=== PATIENT | male | born 1940 | race Caucasian/White ===

== ENCOUNTER 2016-05-05 05:15 | Inpatient (IN) | payer OTHER ==
[2016-04-07 10:26] VITALS: BMI 35.0
--- NOTE | 2016-04-07 10:49 | PAT Medication Instructions ---
Service Date Apr 07, 2016. Current Home Medication List Aspirin (Aspirin Ec), 81 MG PO QAM Meloxicam (Mobic), 15 MG PO PRN Multivitamin (Multivitamin), 1 TAB PO QAM Medication Instructions For Your Scheduled Surgery Meloxicam (Mobic), 15 MG PO PRN (currently on hold) - Hold the following medications the morning of surgery: Multivitamin (Multivitamin), 1 TAB PO QAM - Take the following medications the morning of surgery with a sip of water: Aspirin (Aspirin Ec), 81 MG PO QAM (okay to continue per surgeon) If you have any questions please call us at [phone] (Erica Lambert PA-C) or [phone] or [phone]
[2016-04-07 11:38] LABS: BASO % 0.5 %; BASO ABS # 0.03 K/uL (0-0.2); COMPLETE YES; HEMATOCRIT 46.5 % (42-52); IG% 0.5 %; LYMPH % 33.7 %; LYMPH ABS # 2.12 K/uL (1.2-3.4); MEAN CELL VOLUME 86.9 fL (80-100); MEAN CORPUSCULAR HEMOGLOBIN 29.9 pg (25-34); MEAN CORPUSCULAR HGB CONC 34.4 g/dl (32-36); MEAN PLATELET VOLUME 9.5 fL (7.4-10.4); MONO % 6.8 %; NEUT % 52.5 %; PLATELET COUNT 181 K/uL (130-400); RED BLOOD COUNT 5.35 M/uL (4.7-6.1); WHITE BLOOD COUNT 6.29 K/uL (4.8-10.8)
[2016-04-07 11:47] LABS: PARTIAL THROMBOPLASTIN RATIO 1.1; PROTHROMBIN TIME (PATIENT) 10.3 SECONDS (9.0-12.0)
[2016-04-07 12:08] LABS: BLOOD UREA NITROGEN 21 mg/dl (7-18); BUN/CREATININE RATIO 19.5 (10-20); C-REACTIVE PROTEIN < 0.29 mg/dl (0-0.29); CALCIUM 9.1 mg/dl (8.5-10.1); CARBON DIOXIDE 27 mmol/L (21-32); CHLORIDE 107 mmol/L (98-107); GLUCOSE 106 mg/dl (70-99); POTASSIUM 4.8 mmol/L (3.5-5.1); SODIUM 142 mmol/L (136-145)
[2016-04-08 14:54] LABS: BUN/CREATININE RATIO 18.1 (10-20); CALCIUM 9.1 mg/dl (8.5-10.1); CREATININE 1.2 mg/dl (0.60-1.40); POTASSIUM 4.3 mmol/L (3.5-5.1)
--- NOTE | 2016-04-30 22:11 | HISTORY & PHYSICAL EXAMINATION ---
DATE OF ADMISSION: 05/05/2016 CHIEF COMPLAINT: Right hip pain. HISTORY OF PRESENT ILLNESS: A 75-year-old gentleman who is now about 5 months out from a left hip replacement. His left hip is doing great. He has had persistent pain and discomfort in his right hip. He is limited by this pain. He describes groin pain, thigh pain. It radiates down to his knee. He has been through extensive conservative treatment. He states he has got pain in his right hip with every step. He has got marked relief of his left hip pain and would like to have his right hip replaced. PAST MEDICAL HISTORY: Arthritis. PAST SURGICAL HISTORY: Previous surgeries include left hip replacement done 11/25/2015. ALLERGIES: None. CURRENT MEDICATIONS: Mobic. SOCIAL HISTORY: A 75-year-old male. He does not smoke. He is from [place]. He does have a significant other. FAMILY HISTORY: Noncontributory. REVIEW OF SYSTEMS: Negative for diabetes, neurologic problems, vascular problems, bleeding disorders. Denies any chest pain or shortness of breath. No history of DVT or PE. PHYSICAL EXAMINATION: GENERAL: Reveals a healthy, pleasant middle-aged male. He looks younger than his stated age. HEENT: Benign. NECK: Supple. No lymphadenopathy. LUNGS: Clear to auscultation. HEART: Regular rate and rhythm. ABDOMEN: Soft, nontender, nondistended. EXTREMITIES: Grossly neurovascularly intact except as follows: Examination of both lower extremities reveals the patient walks with a slight bit of a limp on his right side. Examination of the left hip reveals well-healed incision. About 0.5 cm long on the left side compared to the right. No pain with hip motion. Examination of the right hip reveals about 0.5 cm leg length discrepancy. He has got a very stiff hip. Internal rotation to neutral, external rotation to 20 degrees. He has got pain with any type of hip motion. He is neurologically intact. Negative straight leg raise. X-RAYS: X-rays of the right hip reveal advanced right hip DJD. He has got complete loss of the superior joint space. He has got cystic changes in the femoral head and acetabulum. The left hip looks to be healing nicely. ASSESSMENT: A 75-year-old gentleman who is about 5 months out from a left total hip replacement with advanced right hip degenerative joint disease. He has failed conservative treatment. He has had an excellent result with his left hip and would like to have his right hip replaced. PLAN: We will take him to the operating room and do a right total hip replacement. The risks and benefits of this procedure were explained to the patient including but not limited to DVT, PE, , infection, neurological injury, vascular injury, bleeding problems, pain, limited range of motion, stiffness, failure to relieve his symptoms, incomplete relief of symptoms, need for further surgery in the future, fracture, leg length inequality, nerve palsy, etc. The patient understands and desires to proceed. Informed consent was obtained. We will do our best to make his leg lengths equal. We did talk to him about that but the most important thing is to create a well-fixed stable hip. The patient had preoperative workup. Labs were all normal. He knows to hold his Mobic 10 days preop. He will be discharged to home with some home health. His significant other will help, it worked out well last time. We will see him back 2 weeks postop.
[2016-05-05] VITALS (18 sets, daily range): BP systolic 125–181; BP diastolic 74–97; PULSE 87–107; TEMP 36.4–36.8; O2SAT 92–99; Ht 177.8 cm; Wt 111.3 kg
[~2016-05-05] VITALS: Ht 177.8 cm; Wt 111.3 kg
[~2016-05-05 05:15] MED LIST: ASPI81TA28 PO; MELO7.5T5 PO; MULT-506 PO
[2016-05-05] MEDS ORDERED: LACTATED RINGER'S 1000ML 500 ML IV ONE (06:00)
[2016-05-05] MEDS ORDERED: TRANEXAMIC ACID INJ 1,000 MG in SODIUM CHLORIDE 0.9% 100ML 100 ML IV SCH (06:00)
[2016-05-05] MEDS ORDERED: BUPIVACAINE LIPOSOME 266 MG, BUPIVACAINE/EPINEPHRINE INJ 50 ML, SODIUM CHLORIDE 0.9% PF... INFIL SCH ×3 (06:00)
[2016-05-05] MEDS ORDERED: SCOPOLAMINE 1.5 MG TDSY TD SCH (06:00)
[2016-05-05] MEDS ORDERED: FAMOTIDINE 20 MG TAB PO SCH (06:00)
[2016-05-05] MEDS ORDERED: CEFAZOLIN 2000 MG/60 ML D5W 60 ML IV SCH (06:00)
[2016-05-05] MEDS ORDERED: LACTATED RINGER'S 1000ML 1,000 ML IV SCH (06:00)
[2016-05-05] MEDS ORDERED: ACETAMINOPHEN 500 MG TAB PO SCH (06:00)
[2016-05-05] MEDS ORDERED: GABAPENTIN 300 MG CAP PO SCH (06:00)
[2016-05-05] MEDS ORDERED: METOCLOPRAMIDE HCL 10 MG TAB PO SCH (06:00)
[2016-05-05] MEDS ORDERED: LACTATED RINGER'S 1000ML IV SCH (06:00)
[2016-05-05] MEDS ORDERED: BUPIVACAINE 0.5 % 5 MG/1 ML PF 10ML VIAL ONE (06:23)
[2016-05-05] MEDS ORDERED: PROPOFOL IV EMULSION 10 MG/ML 20 ML VIAL IV ONE (06:25)
[2016-05-05] MEDS ORDERED: FENTANYL CITRATE INJ 50 MCG/1 ML 2 ML VIAL ONE (06:25)
[2016-05-05] MEDS ORDERED: LIDOCAINE HCL 2% 2 ML VIAL (20MG/ML) ONE (06:25)
[2016-05-05] MEDS ORDERED: MIDAZOLAM HCL 1 MG/ML 2ML VIAL ONE (06:25)
[2016-05-05] MEDS ORDERED: BACITRACIN 50000 UNIT VIAL ONE (06:31)
[2016-05-05] MEDS ORDERED: MoRPHine SULFATE PF 1 MG/ML 10 ML AMP/VIAL ONE (06:36)
--- NOTE | 2016-05-05 06:48 | History & Physical Bridge Note ---
H&P Re-Evaluation Bridge Note: I have examined the patient, reviewed the History & Physical and in the interval since the performance of the History & Physical I have noted the following changes of clinical significance: No changes noted
[2016-05-05] MEDS ORDERED: BUPIVACAINE/EPINEPHRINE 0.5% MPF 1:200,000 30 ML VIAL ONE (07:08)
[2016-05-05] MEDS ORDERED: PHENYLEPHRINE 100MCG/ML 5ML SYR ONE (07:20)
[2016-05-05] MEDS ORDERED: EpHEDrine SULFATE 50MG/5ML SYR ONE (07:20)
[2016-05-05] MEDS ORDERED: BACITRACIN 50000 UNIT VIAL IR ONE (08:16)
[2016-05-05] MEDS ORDERED: BUPIVACAINE/EPINEPHRINE 0.5% MPF 1:200,000 30 ML VIAL INJ ONE (08:26)
--- NOTE | 2016-05-05 08:42 | [facility] Post Operative Brief Note ---
Immediate Operative Summary Operative Date May 05, 2016. Pre-Operative Diagnosis right hip degenerative joint disease Post-Operative Diagnosis right hip degenerative joint disease Procedure(s) Performed Right total hip replacement-uncemented Surgeon Dr. Anthony Diggs Director Of Supply Chain Surgeon(s) Morris Hernandez PA-C Estimated Blood Loss 300 ml Findings Right Hip DJD Fluids (cc crystalloids) 1400 cc Specimens A. Right femur head Drains None Anesthesia Spinal Complication(s) None Disposition Recovery Room / PACU
[2016-05-05] MEDS ORDERED: ALUMINUM/MAGNESIUM/SIMETH (MAALOX MAX) 30 ML UDC PO PRN (08:45)
[2016-05-05] MEDS ORDERED: METOCLOPRAMIDE HCL INJ 5 MG/ML 2 ML VIAL IV PRN (08:45)
[2016-05-05] MEDS ORDERED: BISACODYL 10 MG SUPP PR PRN (08:45)
[2016-05-05] MEDS ORDERED: TAMSULOSIN HCL 0.4 MG CAP PO PRN (08:45)
[2016-05-05] MEDS ORDERED: MAGNESIUM HYDROXIDE SUSP 30 ML UDC PO PRN (08:45)
[2016-05-05] MEDS ORDERED: SILVER SULFADIAZINE 1% CR 50 GM JAR EXT PRN (08:45)
[2016-05-05] MEDS ORDERED: LACTATED RINGER'S 1000ML 500 ML IV PRN (08:49)
[2016-05-05] MEDS ORDERED: NALOXONE HCL INJ 1 MG in SODIUM CHLORIDE 0.9% 1000ML 1,000 ML IV PRN ×4 (08:49)
[2016-05-05] MEDS ORDERED: NALOXONE HCL INJ 0.08 MG in SYRINGE 1.8 ML IV PRN (08:49)
[2016-05-05] MEDS ORDERED: SODIUM CHLORIDE 0.9% 1000ML 1,000 ML IV PRN (08:49)
[2016-05-05] MEDS ORDERED: MoRPHine SULFATE PF 1 MG/ML 10 ML AMP/VIAL EPI PRN (09:00)
[2016-05-05] MEDS ORDERED: NO NARCOTICS OR SEDATIVES SCH (09:00)
[2016-05-05] MEDS ORDERED: PROMETHAZINE HCL INJ 25 MG in SODIUM CHLORIDE 0.9% 50ML 50 ML IV PRN (09:00)
[2016-05-05] MEDS ORDERED: EpHEDrine SULFATE INJ 50 MG/ML AMP IV PRN (09:00)
[2016-05-05] MEDS ORDERED: ONDANSETRON INJ 2 MG/ML 2 ML VIAL IV PRN (09:00)
[2016-05-05] MEDS ORDERED: DiphenhydrAMINE HCL 50 MG/ML VIAL IV PRN (09:00)
[2016-05-05] MEDS ORDERED: MULTIVITAMIN TAB PO SCH (09:00)
[2016-05-05] MEDS ORDERED: NALOXONE HCL 0.4 MG/1 ML VIAL/CARP IV PRN (09:00)
[2016-05-05] MEDS ORDERED: NALBUPHINE HCL INJ 10 MG/ML AMP IV PRN (09:00)
--- NOTE | 2016-05-05 09:10 | OPERATIVE REPORT ---
DATE OF OPERATION: 05/05/2016 PREOPERATIVE DIAGNOSIS: Right hip degenerative joint disease. POSTOPERATIVE DIAGNOSIS: Same. PROCEDURE PERFORMED: Right uncemented total hip arthroplasty. SURGEON: Anthony Diggs M.D. SENIOR SOFTWARE TEST ENGINEER: Irvin Hernandez PA-C. COMPLICATIONS: None. ESTIMATED BLOOD LOSS: 300 mL. FLUID REPLACEMENT: 1400 mL crystalloid fluid replacement. ANESTHESIA: Duramorph spinal. DRAINS: None. SPECIMENS: Right femoral head sent for pathology. OPERATIVE INDICATIONS: The patient is a 75-year-old gentleman who has had a fairly long history of bilateral hip pain and discomfort, left side greater than the right. He had been through extensive conservative treatment by his primary care physician. He underwent a left total hip replacement about 5 months ago and did extremely well from this. He elected to proceed with the right total hip arthroplasty. He has got advanced arthritic changes in the right hip as well. OPERATION AND FINDINGS: OPERATIVE FINDINGS: Operative findings revealed advanced right hip DJD. 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 He had a moderate sized joint effusion. OPERATIVE IMPLANTS: Operative implants consisted of: 1. Biomet G7 size 58 mm acetabular shell. 2. A 6.5 cancellous acetabular screws, 1 at 35 mm length and 1 at 25 mm in length. 3. An apex hole eliminator. 4. A Biomet highly cross-linked polyethylene liner with a 58 mm outer diameter, 36 mm inner diameter with a alonzo placed inferior and posterior. 5. A DePuy size 13.5 large stature high offset femoral stem. 6. A +8.5/36 mm metal articular ball. OPERATIVE PROCEDURE: The patient taken to the operating room, identified and placed on the operating table in supine position. All contact areas were appropriately padded. IV antibiotics were provided by the anesthesia team. A spinal anesthetic had been implemented in holding area. Teixeira catheter was placed in sterile fashion. The patient was then placed in the left lateral decubitus position. An axillary roll was placed. [facility] hip positioner was used for positioning. The right hip and leg were then prepped and draped in the usual sterile fashion. A posterolateral approach to the right hip was then performed through a curvilinear incision centered over the greater trochanter. Sharp dissection was carried out through the subcutaneous tissue down to the level of the IT band and gluteal fascia. The IT band and gluteal fascia were then incised longitudinally in line with skin incision. The underlying greater trochanteric bursa was excised. The piriformis and external rotators were tagged and taken off the posterior aspect of the femur. Great care was taken throughout the procedure to protect the sciatic nerve at all times. Posterior capsulotomy was then performed leaving a large flap for later repair. Hip was internally rotated and dislocated. Femoral neck osteotomy cut was made with the final cut 15 mm above the lesser trochanter, which was identical to the opposite side. Femoral head was removed and sent for pathology. The femur was retracted anteriorly. Attention was then drawn to the acetabulum. The acetabular labrum was excised. The pulvinar fat was excised. Sequential reaming of the acetabulum was then performed beginning with a size 51 and progressing up to 57. A 58 mm Biomet G7 acetabular shell was then placed in about 40 degrees of lateral opening and 20 degrees of anteversion. It was fixed with two 6.5 cancellous acetabular screws. A trial liner was placed. Attention was then drawn to the femur. The proximal femur was entered with a cookie cutter followed by canal finder and lateralizing reamer. Sequential reaming of the femur was then performed beginning with a size 10 and progressing up to 13. We got really pretty good chatter at a 12. I then broached beginning with a size 10.5 small and progressing to a 13.5 large broach. We did countersink this slightly. The calcar reamer was used to smoothen off the calcar. Once again, the final calcar length was about 15 mm. The hip was then trialed. Once again, similar to the opposite side the soft tissue tension was a bit lax. We used the high offset implant to maximize soft tissue tension. I did place an 8.5 head similar to the opposite side. The hip was fully stable in full extension, external rotation, flexion to 90 degrees, internal rotation to about [address] a alonzo very inferior and posterior to maximize stability in flexion. Attention was then drawn toward placement of the permanent components. All trial components were removed. An apex hole eliminator was placed. A highly cross-linked polyethylene liner was placed with the alonzo placed inferior and posterior. A 13.5 large stature high offset femoral stem was placed. We got excellent scratch fit. A +8.5/36 mm metal articular ball was placed. Hip was located and once again found to be stable. Attention was then drawn toward closing. The wound was irrigated with copious amounts of pulsatile lavage solution. I did inject locally with 60 mL of 0.5% Marcaine with epinephrine. The posterior capsule and external rotators were repaired through drill holes in the posterior trochanter with #2 Ti-Cron suture. The IT band and gluteal fascia were then closed with #1 PDS suture in running fashion. The subcutaneous tissues were then closed in 2 layers with a deep layer #1 Vicryl suture and the subcutaneous tissues with 2-0 Dexon suture in a buried interrupted fashion. Skin was closed skin jasper. Leg was then cleaned and dried and a sterile dressing of Xeroform, 4 x 4's, ABD pad and foam tape was applied. The patient was then transferred to the recovery room in stable condition. The patient tolerated the procedure well with no complications. All needle and sponge counts were correct at the end of the operation. I attest to the content of the Intraoperative Record and any orders documented therein. Any exceptio ns are noted below.
--- NOTE | 2016-05-05 09:30 | DIAGNOSTIC IMAGING REPORT ---
AP PELVIS AND RIGHT HIP 3 VIEWS CLINICAL HISTORY: Postop total hip arthroplasty COMPARISON STUDY: No previous studies for comparison. FINDINGS: There are bilateral total hip arthroplasties. There is soft tissue air present on the right consistent with recent surgery. The femoral and acetabular components of the total right hip arthroplasty appear well seated. There is no dislocation. There are overlying skin jasper. IMPRESSION: Postsurgical changes of a recent total right hip arthroplasty Electronically signed by: Haseeb Shepherd M.D. 05/05/2016 9:28 AM Dictated Date/Time: 05/05/2016 9:27 AM
--- NOTE | 2016-05-05 10:26 | Anesthesiology Progress Note ---
Anesthesia Post Op Note Date & Time May 05, 2016 at 10:26 Vital Signs Pain Intensity: 0 Vital Signs Past 12 Hours Date Time Temp Pulse Resp B/P Pulse Ox O2 Delivery O2 Flow Rate FiO2 05/05/16 09:39 92 12 87 05/05/16 09:39 92 12 05/05/16 09:38 145/88 05/05/16 09:34 98 12 05/05/16 09:34 98 12 100 05/05/16 09:33 145/85 05/05/16 09:29 86 16 05/05/16 09:29 87 14 96 05/05/16 09:28 147/94 05/05/16 09:24 88 12 86 05/05/16 09:24 88 12 05/05/16 09:23 142/84 05/05/16 09:19 98 12 89 05/05/16 09:19 100 12 05/05/16 09:18 154/87 05/05/16 09:14 91 16 05/05/16 09:14 90 16 89 05/05/16 09:13 152/94 05/05/16 09:10 97 20 05/05/16 09:10 97 20 97 05/05/16 09:05 94 16 97 05/05/16 09:05 94 16 05/05/16 09:03 170/87 05/05/16 09:00 98 21 97 05/05/16 09:00 98 21 05/05/16 08:58 147/86 05/05/16 08:55 92 15 05/05/16 08:55 92 15 98 05/05/16 08:54 93 18 05/05/16 08:54 94 18 99 05/05/16 08:53 153/86 05/05/16 08:49 91 12 97 05/05/16 08:49 91 12 05/05/16 08:48 151/85 05/05/16 08:44 97 19 97 05/05/16 08:44 97 19 05/05/16 08:43 153/88 05/05/16 08:39 97 19 05/05/16 08:39 96 19 98 05/05/16 08:38 36.5 94 16 145/83 98 Mask 10 05/05/16 05:38 36.8 87 20 181/97 93 Room Air Notes Mental Status: alert / awake / arousable, participated in evaluation Pt Amnestic to Procedure: Yes Nausea / Vomiting: adequately controlled Pain: adequately controlled Airway Patency, RR, SpO2: stable & adequate BP & HR: stable & adequate Hydration State: stable & adequate Neuraxial Anesthesia: was administered, sensory block is resolving Anesthetic Complications: no major complications apparent
[2016-05-05] MEDS: D5W AND 1/2NSS + 20MEQ KCL 1,000 ML IV SCH ×2 (12:53→18:24)
--- NOTE | 2016-05-05 13:11 | PROGRESS NOTE ---
DATE: 05/05/2016 SUBJECTIVE: A 75-year-old gentleman postop from a right hip replacement. He is doing well. Not having any pain yet. No chest pain or shortness of breath. Not feeling dizzy or lightheaded. Apparently had a little trouble getting his temperature up in recovery room, but patient feels fine. OBJECTIVE: VITAL SIGNS: Temperature is 36.2. Vital signs stable. PHYSICAL EXAMINATION: GENERAL: Reveals a healthy, pleasant, elderly male. He is lying in bed and looks comfortable. LUNGS: Clear to auscultation. HEART: Regular rate and rhythm. ABDOMEN: Soft, nontender, nondistended. EXTREMITIES: Grossly neurovascularly intact except as follows: Examination of the right lower extremity reveals the leg to be well aligned. Leg lengths are equal. Hip is located. He can dorsiflex and plantarflex his foot appropriately. He is neurologically intact. X-RAYS: X-rays of the right hip from the recovery room were reviewed. It shows a right uncemented total hip arthroplasty. Components looked to be in good position. No signs of problems. ASSESSMENT: A 75-year-old gentleman postoperative from a right total hip replacement, doing well. His hip is located. He is neurologically intact. Pain is controlled. PLAN: 1. DVT prophylaxis including thigh-high TEDs, SCDs, and aspirin twice a day. 2. PT/OT. Weightbearing as tolerated. Right total hip protocol. 3. Pain control. Not having any pain currently. We will try and use p.o. pain medicine as much as possible. 4. IV antibiotics x24 hours. 5. Disposition: Plan to discharge to home with some home health once adequately recovered.
[2016-05-05] MEDS: KETOROLAC TROMETHAMINE 15 MG/ML VIAL IV. SCH ×2 (13:36→20:32)
[2016-05-05] MEDS: ACETAMINOPHEN 500 MG TAB PO SCH ×2 (13:37→22:12)
[2016-05-05] MEDS ORDERED: TRANEXAMIC ACID INJ 1,000 MG in SODIUM CHLORIDE 0.9% 100ML 100 ML IV ONE (16:00)
[2016-05-05] MEDS: CHECK SCOPOLAMINE PATCH PLACEMENT SCH ×2 (16:11→23:34)
[2016-05-05] MEDS: CEFAZOLIN IV 2,000 MG in DEXTROSE 5% 50ML 50 ML IV SCH ×2 (16:21→23:34)
[2016-05-05] MEDS: FERROUS GLUCONATE 324 MG TAB PO SCH (18:23)
[2016-05-05] MEDS: ASPIRIN 325 MG ECTAB PO SCH (20:32)
[2016-05-05] MEDS: DOCUSATE SODIUM 100 MG CAP PO SCH (20:32)
[2016-05-06] VITALS (11 sets, daily range): BP systolic 121–161; BP diastolic 71–88; PULSE 76–90; TEMP 36.5–36.8; O2SAT 95–99
[2016-05-06] MEDS: D5W AND 1/2NSS + 20MEQ KCL 1,000 ML IV SCH ×2 (01:44→07:27)
[2016-05-06] MEDS: KETOROLAC TROMETHAMINE 15 MG/ML VIAL IV. SCH ×4 (01:45→19:58)
[2016-05-06] MEDS ORDERED: ZOLPIDEM TARTRATE 5 MG TAB PO PRN (02:00)
[2016-05-06] MEDS ORDERED: MoRPHine SULFATE 2 MG/ML CARP IV PRN (02:00)
[2016-05-06] MEDS ORDERED: OXYCODONE HCL IR 5 MG TAB (IMMEDIATE RELEASE) PO PRN (02:00)
[2016-05-06] MEDS ORDERED: ONDANSETRON INJ 2 MG/ML 2 ML VIAL IV PRN (02:00)
[2016-05-06] MEDS ORDERED: DiphenhydrAMINE HCL 50 MG/ML VIAL IV PRN (02:00)
[2016-05-06] MEDS ORDERED: DC INTRASPINAL MORPHINE SCH (02:00)
[2016-05-06] MEDS: ACETAMINOPHEN 500 MG TAB PO SCH ×3 (05:56→21:35)
[2016-05-06 06:14] LABS: BASO % 0.2 %; BASO ABS # 0.01 K/uL (0-0.2); COMPLETE YES; EOS % 1.8 %; HEMATOCRIT 35.2 % (42-52); IG% 0.3 %; LYMPH % 25.6 %; LYMPH ABS # 1.53 K/uL (1.2-3.4); MEAN CELL VOLUME 88.9 fL (80-100); MEAN CORPUSCULAR HEMOGLOBIN 30.1 pg (25-34); MEAN CORPUSCULAR HGB CONC 33.8 g/dl (32-36); MEAN PLATELET VOLUME 9.1 fL (7.4-10.4); MONO % 12.9 %; NEUT % 59.2 %; PLATELET COUNT 142 K/uL (130-400); RED BLOOD COUNT 3.96 M/uL (4.7-6.1); WHITE BLOOD COUNT 5.98 K/uL (4.8-10.8)
[2016-05-06 06:45] LABS: BUN/CREATININE RATIO 16.8 (10-20); CALCIUM 7.6 mg/dl (8.5-10.1); CREATININE 1.2 mg/dl (0.60-1.40); POTASSIUM 4.2 mmol/L (3.5-5.1)
[2016-05-06] MEDS: CHECK SCOPOLAMINE PATCH PLACEMENT SCH ×2 (07:26→14:29)
[2016-05-06] MEDS: TAPENTADOL ER 50 MG TABCR PO SCH ×2 (08:48→20:58)
[2016-05-06] MEDS: DOCUSATE SODIUM 100 MG CAP PO SCH ×2 (08:49→20:58)
[2016-05-06] MEDS: FERROUS GLUCONATE 324 MG TAB PO SCH ×3 (08:49→18:14)
[2016-05-06] MEDS: PANTOprazole SOD 40 MG TAB PO SCH (08:49)
[2016-05-06] MEDS: ASPIRIN 325 MG ECTAB PO SCH ×2 (08:49→20:58)
[2016-05-06] MEDS: MULTIVITAMIN TAB PO SCH (08:49)
[2016-05-06] MEDS ORDERED: ASPEC325 PO (09:58)
[2016-05-06] MEDS ORDERED: OXYC-57 PO (09:58)
--- NOTE | 2016-05-06 10:00 | Discharge Instructions ---
Discharge Instructions Admission Reason for Admission: Right Hip Degenerative Joint Disease Discharge Discharge Diagnosis / Problem: Right Hip Replacement Discharge Goals Goal(s): Decrease discomfort, Improve function, Increase independence, Improve disease control, Therapeutic intervention Activity Recommendations Activity Limitations: per Instructions/Follow-up section (Total Hip PRecautions ) Weightbearing Status: Right weightbearing . Instructions / Follow-Up Instructions / Follow-Up ACTIVITY RECOMMENDATIONS: Physical Therapy: * Aggressive physical therapy is not usually needed. You will learn to take care of yourself safely and walk. * Follow the "Hip Precautions Instructions." * In some cases, the social secretary at the hospital will arrange to have a therapist come to your house for the first couple of weeks to help you learn these skills. * You need to practice on your own or with the help of a family member as needed. * When you learn these skills, most of the therapy can be done on your own. Home Exercise: * You were shown a series of exercises in the hospital. Do these exercises three to four times each day including the exercises you were shown in physical therapy. Walking: * Get up and walk several times each day. For the first four weeks, try not to stand or walk for more than one hour at a time. If you do stand or walk for more than one hour, you will not hurt anything, but your leg will likely swell. * As you feel comfortable, you may change from the walker or crutches to a cane and then to independent walking. MEDICATIONS: New Medicine: * You will likely be taking one or more of these medicines: 1. Percocet - Take, as directed, when you need it, every four to six hours to control your pain. 2. Aspirin - Thins your blood to lessen the chance of forming a blood clot. * The most common side effects of pain medicine and iron are nausea and constipation. If nausea or constipation is too much of a problem or if you have any questions about your new medicines or doses, call [facility] at . We will try to help you manage these issues. VERY IMPORTANT TO READ AND REVIEW" Pain: * The immediate post-operative period after hip replacement surgery is often quite painful. * You are given a prescription for pain medicine. You should take it, as directed, when you need it, especially before physical therapy and before going to bed. Pain that interferes with sleep is very common and can last several months. * You will likely need pain medicine for the first two to four weeks. It will not stop all of the pain. The pain will lessen and as you feel better, you may change to milder pain medicine such as Tylenol. * The most common side effects of pain medicine are nausea and constipation, so don't take more than you need. SPECIAL CARE INSTRUCTIONS: TEDs/Elastic Stockings: * The white elastic stockings help limit swelling and prevent blood clots from forming in your legs. The more you wear them, the more they work. * Wear them for six weeks. Prevention of Infection: * Take antibiotics one hour before any dental cleaning, dental work, urological procedure, gastrointestinal procedure or any invasive surgery in order to prevent your new joint from getting infected. * You may get the antibiotics from the doctor performing the procedure or you may call our office at before and we will call in a prescription to the pharmacy of your choice. Things to Watch For: * Drainage from the incision site that occurs more than one week after your surgery. * Severely increased leg pain or swelling. * Increased redness at the incision site. * Fever above 102 degrees Fahrenheit. * Unusual chest pain or shortness of breath. * Unusual pain or burning with urination. Call [facility] at with any of the above problems or if you have any questions about your medicines or recovery. FOLLOW UP VISIT: Make an appointment to see your doctor for approximately two weeks after surgery for a progress check and staple removal by calling the office at . Current Hospital Diet Patient's current hospital diet: Regular Diet Discharge Diet Recommended Diet: Regular Diet Procedures Procedures Performed: Right total hip replacement-uncemented Pending Studies Studies pending at discharge: no Medical Emergencies . Who to Call and When: Medical Emergencies: If at any time you feel your situation is an emergency, please call [phone] immediately. . Non-Emergent Contact Non-Emergency issues call your: Surgeon . "Provider Documentation" section prepared by Anthony Diggs. VTE Core Measure Inpt VTE Proph given/why not?: Other Anticoagulation, T.E.D. Stockings, SCD's
--- NOTE | 2016-05-06 10:10 | PROGRESS NOTE ---
DATE: 05/06/2016 DATE: 05/06/2016. SUBJECTIVE: A 75-year-old gentleman postop day 1 from right total hip replacement. He is doing well. He said he is getting around better than he did with his last hip. No pain particularly. No chest pain or shortness of breath. Not feeling dizzy or lightheaded. OBJECTIVE: VITAL SIGNS: Temperature 36.7. Vital signs stable. PHYSICAL EXAMINATION: GENERAL: Reveals a healthy, pleasant, middle-aged male. He is sitting up in his bedside chair and looks comfortable. LUNGS: Clear to auscultation. HEART: Regular rate and rhythm. ABDOMEN: Soft, nontender, nondistended. EXTREMITY EXAMINATION: Grossly neurovascularly intact except as follows: Examination of right lower extremity reveals the leg to be well aligned. Leg lengths are equal. Dressing is clean, dry and intact. Thigh is soft and supple. He is neurologically intact. LABORATORY DATA: Hemoglobin 11.9, hematocrit 35.2. Electrolytes are stable. ASSESSMENT: A 75-year-old gentleman postop day 1 from a right total hip replacement, doing well. His pain is controlled. Hip is located. He is neurologically intact. PLAN: 1. DVT prophylaxis including thigh-high TEDs, SCDs, and aspirin twice a day. 2. PT/OT. Weightbearing as tolerated. Right total hip protocol. 3. Pain control, doing well with current pain regimen. 4. Disposition: Plan to discharge to home with some home health once adequately recovered.
[2016-05-07] MEDS: CHECK SCOPOLAMINE PATCH PLACEMENT SCH (00:16)
[2016-05-07] MEDS: KETOROLAC TROMETHAMINE 15 MG/ML VIAL IV. SCH ×2 (02:09→07:45)
[2016-05-07] MEDS: ACETAMINOPHEN 500 MG TAB PO SCH (05:32)
[2016-05-07 05:55] VITALS: BP 159/85; PULSE 91; TEMP 36.7; O2SAT 97
[2016-05-07] MEDS: DOCUSATE SODIUM 100 MG CAP PO SCH (07:44)
[2016-05-07] MEDS: MULTIVITAMIN TAB PO SCH (07:44)
[2016-05-07] MEDS: TAPENTADOL ER 50 MG TABCR PO SCH (07:44)
[2016-05-07] MEDS: ASPIRIN 325 MG ECTAB PO SCH (07:45)
[2016-05-07] MEDS: FERROUS GLUCONATE 324 MG TAB PO SCH ×2 (07:45→13:09)
[2016-05-07] MEDS: PANTOprazole SOD 40 MG TAB PO SCH (07:45)
--- NOTE | 2016-05-07 07:53 | PROGRESS NOTE ---
DATE: 05/07/2016 SUBJECTIVE: 75-year-old gentleman postop day 2 from a right total hip replacement. He is doing well. Pain is controlled. Therapy has gone well. Denies any chest pain or shortness of breath. OBJECTIVE: VITAL SIGNS: Temperature 36.7. Vital signs stable. PHYSICAL EXAMINATION: GENERAL: Reveals a pleasant, middle-aged male. He is sitting up in his bedside chair eating breakfast. Looks comfortable. LUNGS: Clear to auscultation. HEART: Has a regular rate and rhythm. ABDOMEN: Soft, nontender, nondistended. EXTREMITIES: Grossly neurovascularly intact except as follows: Examination of the right hip and leg reveals incision to be clean, dry and intact. His thigh is soft and supple. Hip is located. He is neurologically intact. ASSESSMENT: 75-year-old gentleman postop day 2 from right total hip replacement, doing well. Pain is controlled. He has done well in therapy. PLAN: 1. DVT prophylaxis including thigh-high TEDs, SCDs, and aspirin twice a day. 2. PT/OT. Weightbearing as tolerated. Right total hip protocol. 3. Pain control, doing pretty well with current pain regimen. 4. Disposition: Plan to discharge to home with some home health once adequately recovered.
[2016-05-07 09:19] VITALS: BP 159/85; PULSE 91; TEMP 36.7; O2SAT 97
--- NOTE | 2016-05-12 02:16 | DISCHARGE SUMMARY ---
ADMITTING PHYSICIAN AND SURGEON: Anthony Diggs MD ADMITTING DIAGNOSIS: Right hip degenerative joint disease. SURGERY PERFORMED: Right total hip arthroplasty. SECONDARY DIAGNOSIS: Arthritis. CONSULTS: None obtained. HISTORY AND PHYSICAL EXAMINATION: Well documented in patient's chart. HOSPITAL COURSE: The patient was admitted on 05/05/2016 and underwent total hip arthroplasty, tolerated the procedure well. There were no complications. He was transferred to the PACU postoperatively and later to the orthopedic floor for further care. He was given Ancef for antibiotic prophylaxis, JULIA stockings, SCDs and aspirin for DVT prophylaxis. Hemoglobin, hematocrit and vital signs were monitored during his hospital stay and remained stable. He developed some mild postoperative anemia with a hemoglobin down to 11.9, did not require any blood transfusions. There were no complications. By postoperative day 2, he was tolerating a general diet, pain was controlled with oral pain medicine. He was participating in physical therapy and had no signs or symptoms of deep vein thrombosis. On postop day 2, he was discharged home in good condition, set up with home health services. He was given printed discharge instructions including prescriptions for aspirin 325 mg b.i.d. and Percocet. Continue his home medications with the exception of his home dose of aspirin which was changed. Continue physical therapy. He is weightbearing as tolerated. JULIA stockings, total hip precautions. He will follow up in 10-12 days or sooner if there are problems or concerns.
== END 2016-05-07 13:39 | disposition home health service (06) | DRG 470 ==
LOC: ENRESERVDT → ENRESERVTM → C.ACU 05:15 → C.3E 06:40
PROVIDERS: ADMIT Orthopaedic Surgery Sports Medicine; ATTEND Orthopaedic Surgery Sports Medicine
PROC: 0SR902A Replacement of Right Hip Joint with Metal on Polyethylene Synthetic Substitute, Uncemented, Open Approach (ICD-10-PCS; principal; 2016-05-05 07:00)
DX: M16.11 Unilateral primary osteoarthritis, right hip (principal); M25.451 Effusion, right hip; E66.9 Obesity, unspecified; Z68.35 Body mass index [BMI] 35.0-35.9, adult; Z96.642 Presence of left artificial hip joint; Z79.1 Long term (current) use of non-steroidal anti-inflammatories (NSAID); Z79.82 Long term (current) use of aspirin